=== PATIENT | male | born 1940 | race Caucasian/White ===

== ENCOUNTER 2018-09-22 13:45 | Emergency (ER) | payer OTHER ==
[~2018-09-22] VITALS: Ht 180.3 cm; Wt 93.2 kg
[~2018-09-22 13:45] MED LIST: DABI150C PO; DILT240C90 PO; NITR0.4T51 SL
[2018-09-22] MEDS ORDERED: nitroGLYCERIN 0.4mg SUBLingual tab SL PRN (14:00)
[2018-09-22 14:19] LABS: BASOPHILS % (AUTO) 0.4 % (0-1); EOSINOPHILS # (AUTO) 0.1 X10'3 (0-0.9); HEMATOCRIT 43.3 % (42.0-52.0); HEMOGLOBIN 14.9 g/dl (14.0-17.9); LYMPHOCYTES # (AUTO) 0.9 X10'3 (1.1-4.8); LYMPHOCYTES % (AUTO) 18.6 % (21-51); MEAN CORPUSCULAR HEMOGLOBIN 33.3 PG (27.0-31.0); MEAN CORPUSCULAR HGB CONC 34.4 % (33.0-36.5); MEAN CORPUSCULAR VOLUME 96.8 FL (78-98); MEAN PLATELET VOLUME 7.8 FL (7.4-10.4); MONOCYTES # (AUTO) 0.4 X10'3 (0-0.9); MONOCYTES % (AUTO) 9.2 % (2-12); NEUTROPHILS # (AUTO) 3.3 X10'3 (1.8-7.7); NEUTROPHILS % (AUTO) 69.8 % (42-75); PLATELET COUNT 168 X10'3 (140-440); RED BLOOD COUNT 4.48 X10'6 (4.70-6.10); RED CELL DISTRIBUTION WIDTH 12.6 % (11.5-14.5); WHITE BLOOD COUNT 4.8 X10'3 (4.5-11.0)
[2018-09-22 14:29] LABS: PROTHROMBIN TIME 10.5 SECONDS (9.0-12.0)
[2018-09-22 14:33] LABS: ALANINE AMINOTRANSFERASE 34 U/L (12-78); ALBUMIN 3.2 G/DL (3.4-5.0); ALKALINE PHOSPHATASE 78 IU/L (46-116); ANION GAP 5 (8-16); ASPARTATE AMINO TRANSFERASE 21 U/L (10-37); BILIRUBIN,TOTAL 0.5 MG/DL (0.1-1.0); BLOOD UREA NITROGEN 20 MG/DL (7-18); BUN/CREATININE RATIO 18.5 (5.4-32.0); CALCIUM 8.7 MG/DL (8.5-10.1); CHLORIDE 109 MMOL/L (99-107); CREATININE 1.08 MG/DL (0.60-1.10); GLUCOSE 95 MG/DL (70-104); POTASSIUM 4.4 MMOL/L (3.5-5.1); SODIUM 143 MMOL/L (135-145); TOTAL PROTEIN 6.3 G/DL (6.4-8.2); eGFR 66 ML/MIN
[2018-09-22 14:42] LABS: MAGNESIUM 2.2 MG/DL (1.5-2.4)
[2018-09-22 15:05] VITALS: BP 158/113
== END 2018-09-22 15:06 | disposition home or self-care (01) ==
LOC: ER 13:46
DX: I20.8 Other forms of angina pectoris (principal); I48.91 Unspecified atrial fibrillation; R07.89 Other chest pain; Z90.49 Acquired absence of other specified parts of digestive tract; Z79.899 Other long term (current) drug therapy
CPT/HCPCS: 36415; 71045; 80053; 83735; 83880; 84484; 85025; 85610; 93005; 99285

== ENCOUNTER 2019-03-11 13:25 | Inpatient (IN) | payer MEDICARE, OTHER ==
[~2019-03-11] VITALS: Ht 177.8 cm; Wt 95.3 kg
[2019-03-11] MEDS ORDERED: normal saline 1000ML IV soln IV ONE (14:05)
[2019-03-11 14:39] LABS: BASOPHILS % (AUTO) 0.4 % (0-1); EOSINOPHILS # (AUTO) 0.1 X10'3 (0-0.9); EOSINOPHILS % (AUTO) 0.9 % (0-6); HEMATOCRIT 41.8 % (42.0-52.0); HEMOGLOBIN 14.3 g/dl (14.0-17.9); LYMPHOCYTES # (AUTO) 0.8 X10'3 (1.1-4.8); LYMPHOCYTES % (AUTO) 11.4 % (21-51); MEAN CORPUSCULAR HEMOGLOBIN 32.9 PG (27.0-31.0); MEAN CORPUSCULAR HGB CONC 34.1 g/dL (33.0-36.5); MEAN CORPUSCULAR VOLUME 96.3 FL (78-98); MEAN PLATELET VOLUME 8.2 FL (7.4-10.4); MONOCYTES # (AUTO) 0.7 X10'3 (0-0.9); MONOCYTES % (AUTO) 10.7 % (2-12); NEUTROPHILS # (AUTO) 5.2 X10'3 (1.8-7.7); NEUTROPHILS % (AUTO) 76.6 % (42-75); PLATELET COUNT 164 X10'3 (140-440); RED BLOOD COUNT 4.34 X10'6 (4.70-6.10); RED CELL DISTRIBUTION WIDTH 13.4 % (11.5-14.5); WHITE BLOOD COUNT 6.8 X10'3 (4.5-11.0)
[2019-03-11] MEDS ORDERED: diltiazem 5mg/ml 5ml inj. IV ONE ×2 (14:50→15:25)
[2019-03-11 14:52] LABS: ALANINE AMINOTRANSFERASE 62 U/L (12-78); ALBUMIN/GLOBULIN RATIO 0.8 (1.1-1.5); ALKALINE PHOSPHATASE 121 IU/L (46-116); ANION GAP 10 (8-16); ASPARTATE AMINO TRANSFERASE 35 U/L (10-37); BILIRUBIN,TOTAL 0.8 MG/DL (0.1-1.0); BLOOD UREA NITROGEN 22 MG/DL (7-18); BUN/CREATININE RATIO 23.4 (5.4-32.0); CALCIUM 9.4 MG/DL (8.5-10.1); CHLORIDE 108 MMOL/L (99-107); CREATININE 0.94 MG/DL (0.60-1.10); GLUCOSE 133 MG/DL (70-104); SODIUM 143 MMOL/L (135-145); TOTAL CARBON DIOXIDE 24.6 MMOL/L (24-32); TOTAL PROTEIN 6.9 G/DL (6.4-8.2); eGFR 77 ML/MIN
[2019-03-11] MEDS ORDERED: aspirin 81mg tab.chew PO ONE (15:15)
[2019-03-11] MEDS ORDERED: enoxaparin 100mg/ml syringe SUBCUT ONE (15:15)
[2019-03-11] MEDS ORDERED: ciprofloxacin lact 400MG/200ML 200 ML IV ONE (15:20)
[2019-03-11] MEDS ORDERED: NITR0.4T SL (15:27)
[2019-03-11] MEDS ORDERED: ATOR20TA66 PO (15:27)
[2019-03-11] MEDS: diltiazem-D5W 125mg/125ml 125 ML IV SCH ×2 (16:27→18:19)
[2019-03-11] MEDS ORDERED: mag hydrox/Alum hydrox/simeth 30ml oral suspension PO PRN (16:45)
[2019-03-11] MEDS ORDERED: acetaminophen 325mg tablet PO PRN (16:45)
[2019-03-11] MEDS ORDERED: HYDROmorphone inj. 0.5 MG/0.5 ML DISP.SYRIN IV PRN (16:45)
[2019-03-11] MEDS ORDERED: magnesium hydroxide 30ml (MOM) UD suspension PO PRN (16:45)
[2019-03-11] MEDS ORDERED: ondansetron/PF 4mg/2ml inj IV PRN (16:45)
[2019-03-11] MEDS: normal saline 1000ml 1,000 ML IV SCH (17:11)
--- NOTE | 2019-03-11 17:17 | NUR ---
PT HEART RATE 135, DR ALFIE BARNETT.
[2019-03-11] MEDS ORDERED: diltiazem-D5W 125mg/125ml 125 ML IV SCH ×2 (18:11→18:20)
--- NOTE | 2019-03-11 18:30 | NUR ---
DR. Wilson notified of heart rate remaining in the 130s. ordered cardizem gtt to be increased to 15mg/hr.
[2019-03-11 19:00] VITALS: BP 132/70
--- NOTE | 2019-03-11 19:00 | NUR ---
Patient admitted via stretcher to room 3024A and oriented to call lamar and plan of care. Patient without complaints. VSS with cardizem gtt @ 15mg/hr. Will continue to monitor closely.
[2019-03-11 19:30] VITALS: BP 118/75
[2019-03-11 20:00] VITALS: BP 131/81
[2019-03-11] MEDS: ciprofloxacin lact 400MG/200ML 200 ML IV SCH (20:00)
[2019-03-11] MEDS ORDERED: heparin, porcine 5000 units/ml vial SQ SCH (20:00)
[2019-03-11] MEDS ORDERED: enoxaparin 100mg/ml syringe SUBCUT SCH (20:00)
[2019-03-11] MEDS: enoxaparin 60mg/0.6ml syringe SUBCUT SCH (20:00)
[2019-03-11] MEDS: enoxaparin 30mg/0.3ml syringe SUBCUT SCH (20:00)
[2019-03-11 20:30] VITALS: BP 102/61
[2019-03-11] MEDS: diatr meglu/diatrizoate 30ml oral sol.-(3 dose) bottle PO SCH (20:41)
[2019-03-11] MEDS: pantoprazole 40 MG vial IV SCH (20:41)
[2019-03-11 21:00] VITALS: BP 109/59
[2019-03-11 23:00] VITALS: BP 135/73
[2019-03-12] VITALS (9 sets, daily range): BP systolic 101–132; BP diastolic 55–112
[2019-03-12] MEDS: metroNIDAZOLE-Flagyl 500mg/NS 100 ML IV SCH ×3 (00:39→15:29)
[2019-03-12] MEDS: normal saline 1000ml 1,000 ML IV SCH ×3 (01:49→22:35)
[2019-03-12 03:42] LABS: BASOPHILS % (AUTO) 0.6 % (0-1); EOSINOPHILS # (AUTO) 0.1 X10'3 (0-0.9); EOSINOPHILS % (AUTO) 2.1 % (0-6); HEMATOCRIT 32.9 % (42.0-52.0); HEMOGLOBIN 11.3 g/dl (14.0-17.9); LYMPHOCYTES # (AUTO) 0.7 X10'3 (1.1-4.8); LYMPHOCYTES % (AUTO) 13.3 % (21-51); MEAN CORPUSCULAR HEMOGLOBIN 33.4 PG (27.0-31.0); MEAN CORPUSCULAR HGB CONC 34.3 g/dL (33.0-36.5); MEAN CORPUSCULAR VOLUME 97.3 FL (78-98); MEAN PLATELET VOLUME 8.2 FL (7.4-10.4); MONOCYTES # (AUTO) 0.6 X10'3 (0-0.9); MONOCYTES % (AUTO) 11.7 % (2-12); NEUTROPHILS # (AUTO) 3.6 X10'3 (1.8-7.7); NEUTROPHILS % (AUTO) 72.3 % (42-75); PLATELET COUNT 135 X10'3 (140-440); RED BLOOD COUNT 3.38 X10'6 (4.70-6.10); WHITE BLOOD COUNT 4.9 X10'3 (4.5-11.0)
[2019-03-12 03:56] LABS: ALANINE AMINOTRANSFERASE 43 U/L (12-78); ALBUMIN 2.2 G/DL (3.4-5.0); ALBUMIN/GLOBULIN RATIO 0.7 (1.1-1.5); ALKALINE PHOSPHATASE 86 IU/L (46-116); ANION GAP 7 (8-16); ASPARTATE AMINO TRANSFERASE 25 U/L (10-37); BILIRUBIN,TOTAL 0.6 MG/DL (0.1-1.0); BLOOD UREA NITROGEN 18 MG/DL (7-18); BUN/CREATININE RATIO 23.7 (5.4-32.0); CALCIUM 8.1 MG/DL (8.5-10.1); CHLORIDE 112 MMOL/L (99-107); CREATININE 0.76 MG/DL (0.60-1.10); GLUCOSE 101 MG/DL (70-104); POTASSIUM 3.7 MMOL/L (3.5-5.1); SODIUM 145 MMOL/L (135-145); TOTAL CARBON DIOXIDE 25.9 MMOL/L (24-32); TOTAL PROTEIN 5.3 G/DL (6.4-8.2); eGFR > 90 ML/MIN
[2019-03-12] MEDS: enoxaparin 60mg/0.6ml syringe SUBCUT SCH (08:00)
[2019-03-12] MEDS: enoxaparin 30mg/0.3ml syringe SUBCUT SCH (08:00)
[2019-03-12] MEDS: diatr meglu/diatrizoate 30ml oral sol.-(3 dose) bottle PO SCH ×2 (08:05→09:31)
[2019-03-12] MEDS: ciprofloxacin lact 400MG/200ML 200 ML IV SCH ×2 (08:05→21:12)
[2019-03-12] MEDS: pantoprazole 40 MG vial IV SCH (08:06)
[2019-03-12] MEDS: aspirin 81mg tablet.DR PO SCH (08:06)
[2019-03-12] MEDS: atorvastatin 20mg tablet PO SCH (08:07)
[2019-03-12] MEDS ORDERED: iohexol 300mg/ml 100ml inj. ONE (09:29)
[2019-03-12] MEDS: diltiazem 30mg tablet PO SCH ×3 (09:30→21:12)
--- NOTE | 2019-03-12 11:00 | NUR ---
Darren Medina P [address] abdominal done what Diet he is in Please ? Dorinda # [id number]
--- NOTE | 2019-03-12 12:14 | NUR ---
Sent to Steve MESSAGE: RM [id number]; Balaji Medina: Nader Wilson, Balaji is very hungry and would like to eat. If possible will you please address his diet? Thank you, Mesha
--- NOTE | 2019-03-12 15:15 | NUR ---
Patient is on the schedule in IR for Drainage of gallbladder pelvis. Patient to remain NPO until around 1700 when IR will let us know if he will be seen tomorrow and is to be placed back on NPO status at midnight.
[2019-03-12] MEDS ORDERED: diltiazem-D5W 125mg/125ml 125 ML IV SCH ×2 (18:20)
--- NOTE | 2019-03-12 18:25 | NUR ---
Problems reprioritized. Patient report given, questions answered & plan of care reviewed with TAHIRA Feng.
--- NOTE | 2019-03-12 19:13 | NUR ---
Patient in room PCU 3024. I have received report from Dorinda HOFFMANN and had the opportunity to ask questions and assume patient care.
[2019-03-13] VITALS (13 sets, daily range): BP systolic 99–135; BP diastolic 54–92
[2019-03-13] MEDS: metroNIDAZOLE-Flagyl 500mg/NS 100 ML IV SCH ×3 (01:01→17:32)
[2019-03-13] MEDS: diltiazem 30mg tablet PO SCH ×4 (01:02→20:08)
[2019-03-13 05:54] LABS: BASOPHILS % (AUTO) 0.4 % (0-1); EOSINOPHILS # (AUTO) 0.1 X10'3 (0-0.9); EOSINOPHILS % (AUTO) 2.5 % (0-6); HEMATOCRIT 35.7 % (42.0-52.0); HEMOGLOBIN 12.3 g/dl (14.0-17.9); LYMPHOCYTES # (AUTO) 0.7 X10'3 (1.1-4.8); LYMPHOCYTES % (AUTO) 13.4 % (21-51); MEAN CORPUSCULAR HEMOGLOBIN 33.2 PG (27.0-31.0); MEAN CORPUSCULAR HGB CONC 34.6 g/dL (33.0-36.5); MEAN CORPUSCULAR VOLUME 95.8 FL (78-98); MEAN PLATELET VOLUME 8.1 FL (7.4-10.4); MONOCYTES # (AUTO) 0.6 X10'3 (0-0.9); NEUTROPHILS # (AUTO) 3.9 X10'3 (1.8-7.7); NEUTROPHILS % (AUTO) 72.7 % (42-75); PLATELET COUNT 171 X10'3 (140-440); RED BLOOD COUNT 3.72 X10'6 (4.70-6.10); RED CELL DISTRIBUTION WIDTH 12.9 % (11.5-14.5); WHITE BLOOD COUNT 5.3 X10'3 (4.5-11.0)
--- NOTE | 2019-03-13 05:57 | NUR ---
Student Medication Administration: For this medication-pass time frame, all medication were reviewed, dispensed, administered and documented per hospital policy by Katie NAVARRO. Student documentation: I have reviewed and agree with all interventions, assessments performed and documented by Katie NAVARRO.
--- NOTE | 2019-03-13 06:02 | NUR ---
Problems reprioritized. Patient report given, questions answered & plan of care reviewed with Sherice HOFFMANN & Dorinda RN.
--- NOTE | 2019-03-13 06:09 | NUR ---
Patient in room PCU 3024. I have received report from TAHIRA Feng and had the opportunity to ask questions and assume patient care.
[2019-03-13 06:10] LABS: ALANINE AMINOTRANSFERASE 44 U/L (12-78); ALBUMIN 2.4 G/DL (3.4-5.0); ALBUMIN/GLOBULIN RATIO 0.7 (1.1-1.5); ALKALINE PHOSPHATASE 101 IU/L (46-116); ANION GAP 9 (8-16); ASPARTATE AMINO TRANSFERASE 23 U/L (10-37); BILIRUBIN,TOTAL 0.6 MG/DL (0.1-1.0); BLOOD UREA NITROGEN 13 MG/DL (7-18); BUN/CREATININE RATIO 14.6 (5.4-32.0); CALCIUM 8.4 MG/DL (8.5-10.1); CHLORIDE 106 MMOL/L (99-107); CREATININE 0.89 MG/DL (0.60-1.10); GLUCOSE 109 MG/DL (70-104); POTASSIUM 3.7 MMOL/L (3.5-5.1); SODIUM 140 MMOL/L (135-145); TOTAL CARBON DIOXIDE 25.1 MMOL/L (24-32); TOTAL PROTEIN 5.9 G/DL (6.4-8.2); eGFR 82 ML/MIN
[2019-03-13] MEDS: normal saline 1000ml 1,000 ML IV SCH ×2 (06:30→18:45)
[2019-03-13] MEDS: atorvastatin 20mg tablet PO SCH (07:35)
[2019-03-13] MEDS: pantoprazole 40 MG vial IV SCH (07:36)
[2019-03-13] MEDS: aspirin 81mg tablet.DR PO SCH (07:36)
[2019-03-13] MEDS: ciprofloxacin lact 400MG/200ML 200 ML IV SCH ×2 (07:37→20:09)
[2019-03-13] MEDS ORDERED: LIDOcaine 1%/PF 5ML 10 MG/ML VIAL ONE ×2 (08:52→09:15)
--- NOTE | 2019-03-13 09:00 | NUR ---
Patient going to IR, will start ABX Flagyl when he gets back.
[2019-03-13] MEDS ORDERED: fentaNYL/PF 50MCG/1 ML 2ML syringe ONE ×2 (09:06→15:14)
[2019-03-13] MEDS ORDERED: normal saline 1000ml 1,000 ML IV SCH (09:26)
[2019-03-13] MEDS ORDERED: LIDOcaine 1%/PF 5ML 10 MG/ML VIAL SQ ONE (09:30)
[2019-03-13] MEDS ORDERED: fentaNYL/PF 50MCG/1 ML 2ML syringe IV PRN (09:30)
--- NOTE | 2019-03-13 10:03 | NUR ---
Patient is back from IR, and resting comfortably in right side. He is to be on his right side until 11:00. Administering patient ABX, checked needle insertion site, no bleeding, no signs of hematoma,, no redness, small band aid placed over area.
--- NOTE | 2019-03-13 11:54 | NUR ---
patient Darren Medina 3024 A come back from IR is it ok to feed him ? Dorinda RN # [id number]
[2019-03-13 12:27] LABS: BFAPPEAR TURBID; EOSINOPHILS,BODY FLUID 1 %; LYMPHOCYTES,BODY FLUID 6 %; MONOCYTES,BODY FLUID 10 %; NEUTROPHILS,BODY FLUID 83 %
[2019-03-13 12:28] LABS: BF RBC COUNT 74860 /CU MM; BF WBC COUNT 358890 /CU MM (0-1000); BFCOLOR STRAW; BFVOLUME 0.5 ML
[2019-03-13 12:36] LABS: GLUCOSE,BODY FLUID 9 MG/DL
[2019-03-13] MEDS ORDERED: MIDAZolam 5mg/5ml vial ONE (15:14)
[2019-03-13] MEDS ORDERED: LIDOcaine Viscous 15ml cup ONE (15:14)
--- NOTE | 2019-03-13 16:16 | NUR ---
Patient is in GI lab. Flagyl due at 1600, will administer when he arrives back from the GI lab.
--- NOTE | 2019-03-13 18:26 | NUR ---
Problems reprioritized. Patient report given, questions answered & plan of care reviewed with TAHIRA Feng.
--- NOTE | 2019-03-13 18:47 | NUR ---
Patient in room PCU 3024. I have received report from Sherice/Dorinda Marrufo and had the opportunity to ask questions and assume patient care.
[2019-03-14] MEDS: metroNIDAZOLE-Flagyl 500mg/NS 100 ML IV SCH ×2 (00:16→07:56)
[2019-03-14] MEDS: normal saline 1000ml 1,000 ML IV SCH (00:17)
[2019-03-14 02:00] VITALS: BP 111/56
[2019-03-14] MEDS: diltiazem 30mg tablet PO SCH ×2 (02:00→07:54)
[2019-03-14 06:04] LABS: BASOPHILS % (AUTO) 0.7 % (0-1); EOSINOPHILS # (AUTO) 0.2 X10'3 (0-0.9); EOSINOPHILS % (AUTO) 4.5 % (0-6); HEMOGLOBIN 12.7 g/dl (14.0-17.9); LYMPHOCYTES # (AUTO) 0.7 X10'3 (1.1-4.8); LYMPHOCYTES % (AUTO) 15.1 % (21-51); MEAN CORPUSCULAR HEMOGLOBIN 33.4 PG (27.0-31.0); MEAN CORPUSCULAR HGB CONC 35.3 g/dL (33.0-36.5); MEAN CORPUSCULAR VOLUME 94.6 FL (78-98); MEAN PLATELET VOLUME 8.3 FL (7.4-10.4); MONOCYTES # (AUTO) 0.5 X10'3 (0-0.9); MONOCYTES % (AUTO) 10.6 % (2-12); NEUTROPHILS # (AUTO) 3.3 X10'3 (1.8-7.7); NEUTROPHILS % (AUTO) 69.1 % (42-75); PLATELET COUNT 195 X10'3 (140-440); RED BLOOD COUNT 3.81 X10'6 (4.70-6.10); RED CELL DISTRIBUTION WIDTH 13.1 % (11.5-14.5); WHITE BLOOD COUNT 4.8 X10'3 (4.5-11.0)
[2019-03-14 06:12] LABS: ALANINE AMINOTRANSFERASE 45 U/L (12-78); ALBUMIN 2.3 G/DL (3.4-5.0); ALBUMIN/GLOBULIN RATIO 0.7 (1.1-1.5); ALKALINE PHOSPHATASE 92 IU/L (46-116); ANION GAP 7 (8-16); ASPARTATE AMINO TRANSFERASE 33 U/L (10-37); BILIRUBIN,TOTAL 0.4 MG/DL (0.1-1.0); BLOOD UREA NITROGEN 11 MG/DL (7-18); BUN/CREATININE RATIO 13.9 (5.4-32.0); CALCIUM 8.4 MG/DL (8.5-10.1); CHLORIDE 108 MMOL/L (99-107); CREATININE 0.79 MG/DL (0.60-1.10); GLUCOSE 104 MG/DL (70-104); POTASSIUM 3.6 MMOL/L (3.5-5.1); SODIUM 140 MMOL/L (135-145); TOTAL CARBON DIOXIDE 24.7 MMOL/L (24-32); TOTAL PROTEIN 5.7 G/DL (6.4-8.2); eGFR > 90 ML/MIN
--- NOTE | 2019-03-14 06:17 | NUR ---
Problems reprioritized. Patient report given, questions answered & plan of care reviewed with Sherice HOFFMANN & Dorinda RN.
[2019-03-14] MEDS: atorvastatin 20mg tablet PO SCH (07:55)
[2019-03-14] MEDS: pantoprazole 40 MG vial IV SCH (08:00)
[2019-03-14] MEDS: aspirin 81mg tablet.DR PO SCH (08:00)
[2019-03-14] MEDS ORDERED: aminophylline 250mg/10ml inj. IV PRN (09:20)
[2019-03-14] MEDS ORDERED: metoprolol tartrate 1mg/ml inj IV PRN (09:20)
[2019-03-14] MEDS ORDERED: regadenoson 0.4mg/5ml syringe IV ONE (09:20)
[2019-03-14] MEDS ORDERED: nitroGLYCERIN 0.4mg SUBLingual tab SL PRN (09:20)
--- NOTE | 2019-03-14 09:50 | NUR ---
Sent to Steve MESSAGE: Rm: [id number], Balaji Medina: Nuclear medicine techinician postponed to do stress test because pt had a few sips of coffee. Patient would like to go home, can you do discharge paperwork please? Thank you, Jourdan
[2019-03-14] MEDS: ciprofloxacin lact 400MG/200ML 200 ML IV SCH (10:48)
[2019-03-14 11:00] VITALS: BP 135/94
--- NOTE | 2019-03-14 11:06 | NUR ---
explained patient about stress test, patient agree to stay for the test tomorrow I Viktor Carrillo
[2019-03-14] MEDS: diltiazem CD 180mg cap (once-daily) PO SCH (14:56)
[2019-03-14 15:00] VITALS: BP 144/82
[2019-03-14 19:00] VITALS: BP 138/83
[2019-03-14] MEDS: ciprofloxacin 250mg tablet PO SCH (21:05)
[2019-03-14] MEDS: lactobacillus rhamnosus 10,000 MMU CELLS/CAPSULE PO SCH (21:05)
[2019-03-14 23:00] VITALS: BP 132/82
[2019-03-15] VITALS (12 sets, daily range): BP systolic 107–154; BP diastolic 63–96
[2019-03-15] MEDS: metroNIDAZOLE 500mg tablet PO SCH ×3 (00:26→16:36)
[2019-03-15 06:00] LABS: BASOPHILS % (AUTO) 0.6 % (0-1); EOSINOPHILS # (AUTO) 0.2 X10'3 (0-0.9); EOSINOPHILS % (AUTO) 3.8 % (0-6); HEMATOCRIT 36.9 % (42.0-52.0); HEMOGLOBIN 12.8 g/dl (14.0-17.9); LYMPHOCYTES # (AUTO) 0.8 X10'3 (1.1-4.8); LYMPHOCYTES % (AUTO) 14.8 % (21-51); MEAN CORPUSCULAR HEMOGLOBIN 32.8 PG (27.0-31.0); MEAN CORPUSCULAR HGB CONC 34.6 g/dL (33.0-36.5); MEAN CORPUSCULAR VOLUME 94.8 FL (78-98); MEAN PLATELET VOLUME 7.7 FL (7.4-10.4); MONOCYTES # (AUTO) 0.5 X10'3 (0-0.9); NEUTROPHILS # (AUTO) 3.8 X10'3 (1.8-7.7); NEUTROPHILS % (AUTO) 70.8 % (42-75); PLATELET COUNT 211 X10'3 (140-440); RED CELL DISTRIBUTION WIDTH 13.1 % (11.5-14.5); WHITE BLOOD COUNT 5.3 X10'3 (4.5-11.0)
[2019-03-15 06:17] LABS: ALANINE AMINOTRANSFERASE 49 U/L (12-78); ALBUMIN 2.5 G/DL (3.4-5.0); ALBUMIN/GLOBULIN RATIO 0.8 (1.1-1.5); ALKALINE PHOSPHATASE 91 IU/L (46-116); ANION GAP 8 (8-16); ASPARTATE AMINO TRANSFERASE 36 U/L (10-37); BILIRUBIN,TOTAL 0.5 MG/DL (0.1-1.0); BLOOD UREA NITROGEN 10 MG/DL (7-18); BUN/CREATININE RATIO 12.3 (5.4-32.0); CALCIUM 8.5 MG/DL (8.5-10.1); CHLORIDE 108 MMOL/L (99-107); CREATININE 0.81 MG/DL (0.60-1.10); GLUCOSE 109 MG/DL (70-104); POTASSIUM 3.6 MMOL/L (3.5-5.1); SODIUM 141 MMOL/L (135-145); TOTAL CARBON DIOXIDE 25.4 MMOL/L (24-32); TOTAL PROTEIN 5.8 G/DL (6.4-8.2); eGFR > 90 ML/MIN
--- NOTE | 2019-03-15 06:38 | NUR ---
Patient in room PCU 3024. I have received report from TAHIRA Coleman and had the opportunity to ask questions and assume patient care.
[2019-03-15] MEDS: pantoprazole 40mg Tablet.DR PO SCH (07:30)
[2019-03-15] MEDS: aspirin 81mg tablet.DR PO SCH (08:00)
[2019-03-15] MEDS: lactobacillus rhamnosus 10,000 MMU CELLS/CAPSULE PO SCH ×2 (08:00→20:18)
[2019-03-15] MEDS: diltiazem CD 180mg cap (once-daily) PO SCH (08:00)
[2019-03-15] MEDS: atorvastatin 20mg tablet PO SCH (08:00)
--- NOTE | 2019-03-15 09:21 | NUR ---
Pt transported via wheelchair to [facility]. medical imaging technician notified.
[2019-03-15] MEDS ORDERED: regadenoson 0.4mg/5ml syringe IV ONE (09:47)
[2019-03-15] MEDS ORDERED: aminophylline inj. 10 ML IV ONE (09:47)
[2019-03-15] MEDS: ciprofloxacin 250mg tablet PO SCH ×2 (10:00→21:52)
--- NOTE | 2019-03-15 11:45 | NUR ---
Pt back in room after david scan.
--- NOTE | 2019-03-15 18:30 | NUR ---
Patient in room PCU 3024. I have received report from Sarah HOFFMANN and had the opportunity to ask questions and assume patient care.
--- NOTE | 2019-03-15 18:30 | NUR ---
Problems reprioritized. Patient report given, questions answered & plan of care reviewed with TAHIRA Lux.
[2019-03-16] MEDS: metroNIDAZOLE 500mg tablet PO SCH ×2 (00:35→08:08)
[2019-03-16 02:00] VITALS: BP 130/103
[2019-03-16 05:19] LABS: BASOPHILS % (AUTO) 0.5 % (0-1); EOSINOPHILS # (AUTO) 0.2 X10'3 (0-0.9); EOSINOPHILS % (AUTO) 4.1 % (0-6); HEMATOCRIT 36.7 % (42.0-52.0); HEMOGLOBIN 12.8 g/dl (14.0-17.9); LYMPHOCYTES # (AUTO) 0.9 X10'3 (1.1-4.8); MEAN CORPUSCULAR HEMOGLOBIN 32.9 PG (27.0-31.0); MEAN CORPUSCULAR HGB CONC 34.8 g/dL (33.0-36.5); MEAN CORPUSCULAR VOLUME 94.5 FL (78-98); MEAN PLATELET VOLUME 7.8 FL (7.4-10.4); MONOCYTES # (AUTO) 0.5 X10'3 (0-0.9); MONOCYTES % (AUTO) 9.9 % (2-12); NEUTROPHILS # (AUTO) 3.5 X10'3 (1.8-7.7); NEUTROPHILS % (AUTO) 67.5 % (42-75); PLATELET COUNT 243 X10'3 (140-440); RED BLOOD COUNT 3.88 X10'6 (4.70-6.10); RED CELL DISTRIBUTION WIDTH 13.3 % (11.5-14.5); WHITE BLOOD COUNT 5.2 X10'3 (4.5-11.0)
[2019-03-16 05:34] LABS: ALANINE AMINOTRANSFERASE 43 U/L (12-78); ALBUMIN 2.5 G/DL (3.4-5.0); ALBUMIN/GLOBULIN RATIO 0.8 (1.1-1.5); ALKALINE PHOSPHATASE 87 IU/L (46-116); ANION GAP 7 (8-16); ASPARTATE AMINO TRANSFERASE 28 U/L (10-37); BILIRUBIN,TOTAL 0.5 MG/DL (0.1-1.0); BLOOD UREA NITROGEN 13 MG/DL (7-18); BUN/CREATININE RATIO 14.9 (5.4-32.0); CALCIUM 8.2 MG/DL (8.5-10.1); CHLORIDE 109 MMOL/L (99-107); CREATININE 0.87 MG/DL (0.60-1.10); GLUCOSE 105 MG/DL (70-104); POTASSIUM 3.8 MMOL/L (3.5-5.1); SODIUM 141 MMOL/L (135-145); TOTAL PROTEIN 5.7 G/DL (6.4-8.2); eGFR 84 ML/MIN
--- NOTE | 2019-03-16 06:10 | NUR ---
Problems reprioritized. Patient report given, questions answered & plan of care reviewed with Sarah HOFFMANN.
--- NOTE | 2019-03-16 06:16 | NUR ---
Patient in room PCU 3024. I have received report from TAHIRA Lux and had the opportunity to ask questions and assume patient care.
[2019-03-16 07:00] VITALS: BP 117/78
[2019-03-16] MEDS: diltiazem CD 180mg cap (once-daily) PO SCH (08:09)
[2019-03-16] MEDS: pantoprazole 40mg Tablet.DR PO SCH (08:09)
[2019-03-16] MEDS: atorvastatin 20mg tablet PO SCH (08:14)
[2019-03-16] MEDS: lactobacillus rhamnosus 10,000 MMU CELLS/CAPSULE PO SCH (08:14)
[2019-03-16] MEDS: aspirin 81mg tablet.DR PO SCH (08:15)
[2019-03-16] MEDS ORDERED: DILT180C66 PO (08:55)
[2019-03-16] MEDS ORDERED: CIPR-259 PO (08:55)
[2019-03-16] MEDS ORDERED: METR-159 PO (08:55)
[2019-03-16] MEDS ORDERED: PANT-47 PO (08:55)
[2019-03-16] MEDS: ciprofloxacin 250mg tablet PO SCH (09:22)
--- NOTE | 2019-03-16 09:26 | NUR ---
Paged Dr. Wilson re prescriptions. PAGER ID: [phone] MESSAGE: Pt Darren Medina in [id number] needs [facility]. Thanks! Sarah HOFFMANN [phone]
--- NOTE | 2019-03-16 10:05 | NUR ---
Discharge information, including medication information, S&S worsening condition & f/u appointments reviewed with pt. Pt had opportunity to ask questions. Educated pt on importance of following up with PCP within 1 week. Pt stated he would call for an appt today and if he couldn't get one, he would [facility]. IV removed, cannula intact. Tele box removed & returned to returned telephone equipment appraiser. ID band removed. All pt belongings, including cell phone & material mixer, gathered up and sent with pt. Pt ambulated to nurses station & was assisted to wheelchair. Pt and all belongings [place]. Pt opted not to wait for hard copy prescriptions for [facility] & new medications were called in to [facility] in [place].
== END 2019-03-16 10:25 | disposition home or self-care (01) | DRG 383 ==
LOC: ER 13:26 → PCU 3S 16:48
PROVIDERS: ADMIT Family Medicine; ATTEND Family Medicine
PROC: 0W9G3ZX Drainage of Peritoneal Cavity, Percutaneous Approach, Diagnostic (ICD-10-PCS; principal; 2019-03-13)
PROC: 0DB68ZX Excision of Stomach, Via Natural or Artificial Opening Endoscopic, Diagnostic (ICD-10-PCS; 2019-03-13)
PROC: 4A02XM4 Measurement of Cardiac Total Activity, External Approach (ICD-10-PCS; 2019-03-15)
PROC: 3E033HZ Introduction of Radioactive Substance into Peripheral Vein, Percutaneous Approach (ICD-10-PCS; 2019-03-15)
DX: K25.9 Gastric ulcer, unspecified as acute or chronic, without hemorrhage or perforation (principal); K65.1 Peritoneal abscess; I48.92 Unspecified atrial flutter; S36.892A Contusion of other intra-abdominal organs, initial encounter; K29.80 Duodenitis without bleeding; K29.60 Other gastritis without bleeding; I48.91 Unspecified atrial fibrillation; E78.5 Hyperlipidemia, unspecified; I25.10 Atherosclerotic heart disease of native coronary artery without angina pectoris; M54.5 Low back pain; Z90.49 Acquired absence of other specified parts of digestive tract; Z95.5 Presence of coronary angioplasty implant and graft; Z79.899 Other long term (current) drug therapy; Z79.82 Long term (current) use of aspirin; X58.XXXA Exposure to other specified factors, initial encounter; Y92.9 Unspecified place or not applicable
CPT/HCPCS: 10160; 36415; 43239; 71045; 74176; 74177; 77012; 78452; 80053; 82945; 83605; 84145; 84484; 85025; 87040; 87070; 87075; 87077; 87102; 87186; 88305; 88342; 89051; 93005; 93017; 93306; 96361; 96365; 96372; 96375; 99152; 99291; A4620; A9500; C9113; G0378; J0280; J0744; J1650; J2001; J2250; J3010; J3490; J7030; Q9963; Q9967

== ENCOUNTER 2019-03-27 10:01 | Emergency (ER) | payer MEDICARE, OTHER ==
[~2019-03-27] VITALS: Ht 177.8 cm; Wt 101.0 kg
[~2019-03-27 10:01] MED LIST changes: +ATOR20TA66 PO; -DABI150C PO; +DILT180C66 PO; -DILT240C90 PO; +NITR0.4T SL; -NITR0.4T51 SL; +PANT-47 PO
[2019-03-27] MEDS ORDERED: DILT180C53 PO (10:18)
[2019-03-27] MEDS ORDERED: PANT40TA4 PO (10:18)
[2019-03-27] MEDS ORDERED: diltiazem 5mg/ml 5ml inj. IV ONE (10:40)
[2019-03-27 10:45] LABS: BASOPHILS % (AUTO) 0.6 % (0-1); EOSINOPHILS # (AUTO) 0.1 X10'3 (0-0.9); EOSINOPHILS % (AUTO) 1.3 % (0-6); HEMATOCRIT 40.7 % (42.0-52.0); LYMPHOCYTES # (AUTO) 1.1 X10'3 (1.1-4.8); LYMPHOCYTES % (AUTO) 16.5 % (21-51); MEAN CORPUSCULAR HEMOGLOBIN 32.9 PG (27.0-31.0); MEAN CORPUSCULAR HGB CONC 34.3 g/dL (33.0-36.5); MEAN CORPUSCULAR VOLUME 95.8 FL (78-98); MEAN PLATELET VOLUME 7.7 FL (7.4-10.4); MONOCYTES # (AUTO) 0.6 X10'3 (0-0.9); MONOCYTES % (AUTO) 9.5 % (2-12); NEUTROPHILS # (AUTO) 4.7 X10'3 (1.8-7.7); NEUTROPHILS % (AUTO) 72.1 % (42-75); PLATELET COUNT 299 X10'3 (140-440); RED BLOOD COUNT 4.25 X10'6 (4.70-6.10); RED CELL DISTRIBUTION WIDTH 13.4 % (11.5-14.5); WHITE BLOOD COUNT 6.5 X10'3 (4.5-11.0)
[2019-03-27 10:52] VITALS: BP 149/73
[2019-03-27 10:58] LABS: ALANINE AMINOTRANSFERASE 29 U/L (12-78); ALBUMIN 2.9 G/DL (3.4-5.0); ALBUMIN/GLOBULIN RATIO 0.7 (1.1-1.5); ALKALINE PHOSPHATASE 89 IU/L (46-116); ANION GAP 6 (8-16); ASPARTATE AMINO TRANSFERASE 22 U/L (10-37); BILIRUBIN,TOTAL 0.4 MG/DL (0.1-1.0); BLOOD UREA NITROGEN 13 MG/DL (7-18); CALCIUM 8.8 MG/DL (8.5-10.1); CHLORIDE 106 MMOL/L (99-107); GLUCOSE 128 MG/DL (70-104); SODIUM 139 MMOL/L (135-145); TOTAL CARBON DIOXIDE 27.5 MMOL/L (24-32); TOTAL PROTEIN 6.9 G/DL (6.4-8.2); eGFR 72 ML/MIN
[2019-03-27 11:00] LABS: INR 1.1 INR; PARTIAL THROMBOPLASTIN TIME 31 SECONDS (22-32)
== END 2019-03-27 11:29 | disposition home or self-care (01) ==
LOC: ER 10:01
DX: I48.91 Unspecified atrial fibrillation (principal); I25.10 Atherosclerotic heart disease of native coronary artery without angina pectoris; I25.2 Old myocardial infarction; Z90.49 Acquired absence of other specified parts of digestive tract; Z98.890 Other specified postprocedural states; Z79.899 Other long term (current) drug therapy
CPT/HCPCS: 36415; 71045; 80053; 84484; 85025; 85610; 85730; 93005; 96374; 99284; J3490